=== PATIENT | male | born 1955 | race Caucasian/White ===

== ENCOUNTER → 2021-03-29 | Outpatient (CLI) | payer MEDICARE, OTHER | LOC: US 09:30 → CT 12:53 | DX: Z12.2 Encounter for screening for malignant neoplasm of respiratory organs (principal); F17.210 Nicotine dependence, cigarettes, uncomplicated | CPT/HCPCS: 71271 ==

== ENCOUNTER → 2021-04-07 | Outpatient (CLI) | payer MEDICARE, OTHER | LOC: US 08:57 | DX: Z13.6 Encounter for screening for cardiovascular disorders (principal) | CPT/HCPCS: 76706 ==

== ENCOUNTER 2021-10-13 18:09 | Emergency (ER) | payer MEDICARE, OTHER ==
[2021-10-13 18:42] LABS: HEMOGLOBIN 15.9 gm/dl (14.0-17.5); RED BLOOD COUNT 5.08 M/UL (4.20-5.50)
[2021-10-13 19:04] LABS: BUN/CREATININE RATIO 28 (0-10)
[2021-10-14] MEDS ORDERED: CLOPIDOGREL75 MG PO (09:54)
[2021-10-14] MEDS ORDERED: METFORMIN HCL500 MG PO (09:54)
[2021-10-14] MEDS ORDERED: HYDROCHLOROTH12.5 MG PO (09:54)
[2021-10-14] MEDS ORDERED: LEVOTHYROXINE25 MCG PO (09:54)
[2021-10-14] MEDS ORDERED: SIMVASTATIN20 MG PO (09:55)
[2021-10-14] MEDS ORDERED: RISPERIDONE1 MG PO (09:55)
[2021-10-14] MEDS ORDERED: PHENYTOIN SODI100 MG PO (09:55)
[2021-10-14] MEDS ORDERED: VITAMIN B-121000 MCG PO (09:56)
[2021-10-14] MEDS ORDERED: IBUPROFEN200 MG PO (09:56)
[2021-10-14] MEDS ORDERED: LORATADINE10 MG PO (09:56)
[2021-10-14] MEDS ORDERED: ASPIRIN EC81 MG PO (09:56)
== END 2021-10-14 00:25 | disposition home or self-care (01) ==
LOC: ER1 18:09
PROVIDERS: Preventive Medicine Occupational Medicine
DX: R07.89 Other chest pain (principal); Z20.822 Contact with and (suspected) exposure to COVID-19; E11.9 Type 2 diabetes mellitus without complications; Z86.73 Personal history of transient ischemic attack (TIA), and cerebral infarction without residual deficits
CPT/HCPCS: 71045; 80053; 82140; 82550; 82553; 83690; 84484; 85025; 86140; 93005; 99285; G0480; J7030; U0002

== ENCOUNTER 2021-10-14 02:03 | Observation (INO) | payer MEDICARE, OTHER ==
[~2021-10-14] VITALS: Ht 182.9 cm; Wt 59.0 kg
[2021-10-14 02:57] LABS: HEMOGLOBIN 15.2 gm/dl (14.0-17.5); RED BLOOD COUNT 4.95 M/UL (4.20-5.50); WHITE BLOOD COUNT 5.8 K/UL (4.5-11.0)
[2021-10-14 03:21] LABS: BUN/CREATININE RATIO 24 (0-10)
[2021-10-14] MEDS ORDERED: HYDROCHLOROTH12.5 MG PO (09:54)
[2021-10-14] MEDS ORDERED: LEVOTHYROXINE25 MCG PO (09:54)
[2021-10-14] MEDS ORDERED: METFORMIN HCL500 MG PO (09:54)
[2021-10-14] MEDS ORDERED: CLOPIDOGREL75 MG PO (09:54)
[2021-10-14] MEDS ORDERED: PHENYTOIN SODI100 MG PO (09:55)
[2021-10-14] MEDS ORDERED: SIMVASTATIN20 MG PO (09:55)
[2021-10-14] MEDS ORDERED: RISPERIDONE1 MG PO (09:55)
[2021-10-14] MEDS ORDERED: ASPIRIN EC81 MG PO (09:56)
[2021-10-14] MEDS ORDERED: IBUPROFEN200 MG PO (09:56)
[2021-10-14] MEDS ORDERED: LORATADINE10 MG PO (09:56)
[2021-10-14] MEDS ORDERED: VITAMIN B-121000 MCG PO (09:56)
[2021-10-16 06:06] LABS: HEMOGLOBIN 14.1 gm/dl (14.0-17.5); RED BLOOD COUNT 4.59 M/UL (4.20-5.50); WHITE BLOOD COUNT 5.3 K/UL (4.5-11.0)
[2021-10-16 06:37] LABS: BUN/CREATININE RATIO 24 (0-10)
--- NOTE | 2021-10-16 16:53 | NUR ---
PATIENT HAS REFUSED TO TAKE ANY MEDICATION. HE KEEPS SAYING HE WILL "TAKE IT LATER". HE BECOMES BELLIGERENT IF PUSHED TO TAKE MEDICATION, SO MEDICATION WAS MARKED REFUSED. HE WILL ALLOW STAFF TO OBTAIN FINGER STICKS TO CHECK BLOOD SUGAR AND IS OTHERWISE PLEASANT. WCTM CLOSELY.
[2021-10-17 09:02] LABS: RED BLOOD COUNT 4.82 M/UL (4.20-5.50); WHITE BLOOD COUNT 5.4 K/UL (4.5-11.0)
[2021-10-17 09:53] LABS: BUN/CREATININE RATIO 21 (0-10)
--- NOTE | 2021-10-19 15:50 | NUR ---
report given to Kacey at [facility].
== END 2021-10-19 17:16 ==
LOC: ER1 02:03 → CDU 09:11 → M/S 09:11 → CDU 09:11 → M/S 11:40
PROVIDERS: Family Medicine; Internal Medicine; ADMIT Internal Medicine
DX: I69.351 Hemiplegia and hemiparesis following cerebral infarction affecting right dominant side (principal); Z86.73 Personal history of transient ischemic attack (TIA), and cerebral infarction without residual deficits; E11.9 Type 2 diabetes mellitus without complications; E03.9 Hypothyroidism, unspecified; R07.9 Chest pain, unspecified; Z86.59 Personal history of other mental and behavioral disorders; Z82.0 Family history of epilepsy and other diseases of the nervous system; Z82.49 Family history of ischemic heart disease and other diseases of the circulatory system; Z87.891 Personal history of nicotine dependence; Z20.822 Contact with and (suspected) exposure to COVID-19
CPT/HCPCS: 36415; 70450; 71250; 80053; 80185; 82550; 82553; 82962; 83874; 84439; 84443; 84484; 85025; 93005; 96372; 96374; 97116; 97163; 97530; 99285; G0378; J1165; J1650; J7030; U0002